=== PATIENT | male | born 1995 | race Caucasian/White ===

== ENCOUNTER 2024-02-29 15:13 | Emergency (ER) | payer OTHER, SELFPAY ==
[2024-02-29] VITALS (12 sets, daily range): BP systolic 145–154; BP diastolic 85–89; PULSE 65–88; RESP 20–22; TEMP 37; O2SAT 95–98; BMI 30.1
--- NOTE | 2024-02-29 16:01 | ED_ITS ---
HPI - General Adult General Chief complaint: Flank Pain Stated complaint: Major lower side/back pain Time Seen by Provider: 02/29/24 16:00 Related Data Allergies Allergy/AdvReac Type Severity Reaction Status Date / Time No Known Drug Allergies Allergy Verified 02/29/24 15:25 Exam Const: Vital Signs, click to edit/add: Vital Signs - 24 hr 02/29/24 15:22 Temperature 98.6 F Pulse Rate [Right Pulse Oximeter] 88 Respiratory Rate 22 Blood Pressure [Ri ght Upper Arm] 154/89 H Pulse Oximetry 98 Oxygen Delivery Me thod Room Air Course Vital Signs Vital signs: Initial Vital Signs Temperature 98.6 F 02/29/24 15:22 Temperature Source Temporal Artery Scan 02/29/24 15:22 Pulse Rate 88 02/29/24 15:22 Pulse Rhythm Regular 02/29/24 15:22 Pulse Strength 3+ Normal 02/29/24 15:22 Respiratory Rate 22 02/29/24 15:22 Blood Pressure 154/89 H 02/29/24 15:22 Blood Pressure Mean 110 H 02/29/24 15:22 Blood Pressure Position Supine 02/29/24 15:22 Pulse Oximetry 98 02/29/24 15:22 Oxygen Delivery Method Room Air 02/29/24 15:22 Vital Signs Temperature 98.6 F 02/29/24 15:22 Pulse Rate 88 02/29/24 15:22 Respiratory Rate 22 02/29/24 15:22 Blood Pressure 154/89 H 02/29/24 15:22 Pulse Oximetry 98 02/29/24 15:22 Oxygen Delivery Method Room Air 02/29/24 15:22 Temperature 98.6 F 02/29/24 15:22 Pulse Rate 88 02/29/24 15:22 Respiratory Rate 22 02/29/24 15:22 Blood Pressure 154/89 H 02/29/24 15:22 Pulse Oximetry 98 02/29/24 15:22 Oxygen Delivery Method Room Air 02/29/24 15:22 Medications Administered Medications: Generic Name Dose Route Start Last Admin Trade Name Freq PRN Reason Stop Dose Admin Hydromorphone HCl 0.5 mg 02/29/24 16:03 02/29/24 18:25 Hydromorphone 0.5 Mg/0.5 Ml Inj IVP 0.5 mg Q1H PRN Administration Pain Discontinued Medications Generic Name Dose Route Start Last Admin Trade Name Freq PRN Reason Stop Dose Admin Ketorolac Tromethamine 15 mg 02/29/24 16:03 02/29/24 16:11 Ketorolac 15 Mg/Ml Inj IVP 02/29/24 16:04 15 mg ONCE ONE Administration Ondansetron HCl 4 mg 02/29/24 16:03 02/29/24 16:10 Ondansetron 2 Mg/Ml Inj IVP 02/29/24 16:04 4 mg ONCE ONE Administration Oxycodone/Acetaminophen 2 tab 02/29/24 17:20 02/29/24 17:35 Oxycodone/Apap 5-325 Tablet PO 02/29/24 17:21 2 tab ONCE ONE Administration Medical Decision Making MDM Narrative Medical decision making narrative: This patient presents with abrupt onset right flank pain. Differential Diagnosis considered includes: Ureterolithiasis, UTI, pyelonephritis, AAA, colitis, diverticulitis, volvulus, appendicitis, cholecystitis, among others. At this point, the evaluation indicates that ureterolithiasis is the cause of the patient's symptoms. There are no signs that this is an infected stone. The patient does have a fairly large stone at his right UVJ. Likely with an 11 no stones will not pass spontaneously. His pain was tolerable improved after Toradol and Dilaudid but then came back. We attempted pain control with oral medications (Percocet) but this was not effective for the patient. Therefore he required additional doses of Dilaudid to get comfort. At this point with a large stone that is unlikely to pass in the outpatient setting and pain not controlled with oral medications, I do think inpatient admission for pain control neurology consultation is indicated. Unfortunately urology not available here in [place]. Discussed this in detail with the patient and his family. They agree that transfer to [facility] hospital is indicated in this instance. Family's 1st preference would be [facility]. Contacted the [facility] transfer line and all their facilities are at capacity. They do not a wait list. The patient would also be agreeable to and [facility] facility. [facility] are also full but they were accepting the patient onto a wait list. We also contacted the [employer] system which is in the patient's insurance in network. There are no beds at the [facility] or [facility]. Patient does not want transfer to [facility]. Therefore the patient will be monitored here in the ER. Will let the patient eat and drink tonight. He will remain here in the [place] ER until a bed opens up the line a system that can be transferred that point. He and his mother understand the bed might not be available till morning since he is currently on a wait list. Discussed with my oncoming partner, Dr. Calles. She will monitor the patient's condition while he waits for bed here in the ER. Lab Data Labs: Lab Results 02/29/24 Range/Units 16:10 WBC 6.67 (4.50-11.00) K/uL RBC 4.91 (4.30-5.90) m/uL Hgb 14.8 (13.5-17.5) gm/dL Hct 43.0 (37.0-53.0) % MCV 88 (80-100) fL MCH 30 (26-34) pg MCHC 34 (32-36) gm/dL RDW Coeff of Margarita 12.4 (11.5-15.5) % Plt Count 280 (140-440) K/uL Neut % (Auto) 55.7 (42.0-72.0) % Lymph % (Auto) 29.2 (20-44) % [place] % (Auto) 10.8 (0.0-11.0) % Eos % (Auto) 3.7 (0.0-7.0) % Baso % (Auto) 0.3 (0.0-3.0) % Neut # (Auto) 3.71 (1.7-7.0) K/uL Lymph # (Auto) 1.95 (0.90-2.90) K/uL [place] # (Auto) 0.70 (0.00-0.90) K/UL Eos # (Auto) 0.25 (0.00-0.50) K/uL Baso # (Auto) 0.02 (0.00-0.30) K/uL Abs Immat Gran (auto) 0.02 (0.00-0.30) K/uL Imm/Tot Granulo (auto) 0.3 % Sodium 140 (135-149) mmol/L Potassium 3.9 (3.6-5.1) mmol/L Chloride 105 (96-114) mmol/L Carbon Dioxide 26 (20-32) mmol/L Anion Gap 9 (7-15) mEq/L BUN 12 (5-24) mg/dL Creatinine 0.8 (0.5-1.5) mg/dL Estimated Creat Clear 140.68 Estimated GFR 123 ml/min Glucose 105 (60-115) mg/dL Calcium 9.3 (8.4-10.6) mg/dL Total Bilirubin 0.4 (0.1-1.5) mg/dL AST 36 H (12-35) U/L ALT 85 H (4-50) U/L Alkaline Phosphatase 58 (40-150) U/L Total Protein 7.9 (6.0-8.3) g/dL Albumin 4.8 (3.3-5.0) g/dL Lipase 58 (23-300) U/L Urine Color Yellow (Yellow) Urine Appearance Clear (Clear) Urine pH 7.0 (5.0-8.5) Ur Specific Kremlin 1.025 (1.000-1.030) Urine Protein Negative (Negative) Urine Glucose (UA) Negative (Negative) Urine Ketones Negative (Negative) Urine Blood 2+ A (Negative) Urine Nitrite Negative (Negative) Urine Bilirubin Negative (Negative) Urine Urobilinogen 2.0 A (0.2-1.0) Ur Leukocyte Esterase Negative (Negative) Urine RBC 2-5 A (0-2) Urine WBC 0-2 (0-5) Ur Squamous Epith Cells Few (None-Few) Urine Bacteria None (None) Imaging Data CT scan - abdomen: Attestation: I have reviewed the pertinent imaging results. Radiologist's impression: IMPRESSION: 1. There is 11 mm calculus at the right ureterovesical junction causing mild right hydronephrosis. 2. There is a 6 mm nonobstructive calculus within the left kidney. 3. The right testicle is within the inferior aspect the right inguinal canal. 4. Moderate diffuse fatty infiltration of the liver. Discharge Plan Discharge Clinical Impression: Kidney stone Patient Disposition: Xfer Other Stand Alone Forms: [facility] Info Instructions
--- NOTE | 2024-02-29 16:04 | CRLHL7_ITS ---
For Patients: As a result of the Century Cures Act, medical imaging exams and procedure reports are released immediately into your electronic medical record. You may view this report before your referring provider. If you have questions, please contact your health care provider. INDICATION: Right flank pain. TECHNIQUE: Axial noncontrast CT cuts were performed from above diaphragm to below the ischial tuberosities. FINDINGS: There is an 11 mm calculus at the right ureteropelvic junction causing mild right hydronephrosis. There is a 6 mm calculus at the lower pole of the left kidney. No other urinary tract calculi are identified. The urinary bladder, seminal vesicles and prostate gland appear normal. The right testicle is within the inferior aspect of the inguinal canal. There is moderate diffuse fatty infiltration of the liver. The spleen, pancreas and adrenal glands appear normal. There are no enlarged retroperitoneal, mesenteric, iliac or inguinal lymph nodes. The colon and small bowel appear normal. The appendix is not inflamed. There is no free intraperitoneal air or fluid. There are no nodules or masses at the visualized lung bases. There are no lytic or sclerotic skeletal lesions. IMPRESSION: 1. There is 11 mm calculus at the right ureterovesical junction causing mild right hydronephrosis. 2. There is a 6 mm nonobstructive calculus within the left kidney. 3. The right testicle is within the inferior aspect the right inguinal canal. 4. Moderate diffuse fatty infiltration of the liver. Please note that all CT scans at this facility use dose modulation, iterative reconstruction, and/or weight-based dosing when appropriate to reduce radiation dose to as low as reasonably achievable. Dictated by Sedrick Ybarra MD @ 02/29/2024 4:34:44 PM (Electronically Signed)
[2024-02-29] MEDS: ONDANSETRON 2 MG/ML inj 4 MG IVP (16:10)
[2024-02-29] MEDS: KETOROLAC 15 MG/ML inj IVP (16:11)
[2024-02-29 16:16] LABS: Appearance Urine Clear (Clear); Bilirubin Urine Negative (Negative); Blood Urine 2+ (Negative); Color Urine Yellow (Yellow); Glucose Urine Negative (Negative); Ketones Urine Negative (Negative); Leukocyte Esterase Urine Negative (Negative); Nitrite Urine Negative (Negative); Protein Urine Negative (Negative); Specific Gravity Urine 1.025 (1.000-1.030)
[2024-02-29 16:24] LABS: Basophils Absolute Auto 0.02 K/uL (0.00-0.30); Basophils Percent Auto 0.3 % (0.0-3.0); Eosinophils Absolute Auto 0.25 K/uL (0.00-0.50); Eosinophils Percent Auto 3.7 % (0.0-7.0); Hemoglobin* 14.8 gm/dL (13.5-17.5); Immature Granulocytes Abs Auto 0.02 K/uL (0.00-0.30); Immature Granulocytes Pct Auto 0.3 %; Lymphocytes Absolute Auto 1.95 K/uL (0.90-2.90); Lymphocytes Percent Auto 29.2 % (20-44); Mean Corpuscular HGB Conc 34 gm/dL (32-36); Mean Corpuscular Hemoglobin 30 pg (26-34); Mean Corpuscular Volume 88 fL (80-100); Monocytes Percent Auto 10.8 % (0.0-11.0); Neutrophils Absolute Auto 3.71 K/uL (1.7-7.0); Neutrophils Percent Auto 55.7 % (42.0-72.0); Platelet Count* 280 K/uL (140-440); RDW Coefficient of Variation % 12.4 % (11.5-15.5); Red Blood Count 4.91 m/uL (4.30-5.90); White Blood Count* 6.67 K/uL (4.50-11.00)
[2024-02-29 16:36] LABS: Slide Review Reflex No
[2024-02-29 16:38] LABS: Albumin* 4.8 g/dL (3.3-5.0)
[2024-02-29 16:39] LABS: Chloride* 105 mmol/L (96-114); Potassium* 3.9 mmol/L (3.6-5.1); Sodium* 140 mmol/L (135-149)
[2024-02-29 16:41] LABS: Anion Gap 9 mEq/L (7-15); Aspartate Amino Transferase* 36 U/L (12-35); Bilirubin Total* 0.4 mg/dL (0.1-1.5); Carbon Dioxide* 26 mmol/L (20-32); Creatinine* 0.8 mg/dL (0.5-1.5); Est. Creatinine Clearance* 140.68; Estimated Glomerular Filt Rate 123 ml/min
[2024-02-29 16:42] LABS: Alanine Aminotransferase* 85 U/L (4-50); Alkaline Phosphatase* 58 U/L (40-150); Blood Urea Nitrogen* 12 mg/dL (5-24); Calcium* 9.3 mg/dL (8.4-10.6); Glucose* 105 mg/dL (60-115); Lipase* 58 U/L (23-300); Total Protein* 7.9 g/dL (6.0-8.3)
[2024-02-29 16:44] LABS: Squamous Epithelial Cell Urine Few (None-Few); WBC Urine 0-2 (0-5)
--- OUTSIDE RECORDS SUMMARY | 2024-02-29 16:45 | XMS_ITS | Encounter Summary ---
Author Organization [facility] Address [address] [place] [id number] Care Team Providers Care Sock Turner Name Role Phone Jono Barajas MD Unavailable [phone] System, Provider Not In Primary Care Provider Un available Reason for Visit * Reason Comments Medication Refill Encounter Details Date Type Department Care Team (Late st Contact Info) Description 07/03/[address] [phone] Ciera Shah DNP [address] [place] [id number] Medication Refill Social History Tobacco Use Types Packs/Day Years Used Date Smoking Tobacco: Never Smokeless Tobacco: Current Chew Alcohol Use Standard Drinks/Week Comments Yes 0 (1 standard drink = 0.6 oz pur e alcohol) PHQ-2 Answer Date Recorded PHQ-2 Score 6 09/04/2021 Sex and Gender Information Value Date Recorded Sex Assigned at Not on file 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 Gender Identity Not on file Sexual Orientation Not on file documented as of this encounter Miscellaneous Notes * Telephone Encounter - Evelio Miner RN - 07/03/2022 4:40 PM CDT Requested Prescriptions Pending Prescriptions Disp Refills lisinopril (ZESTRIL) 10 MG tablet [Pharmacy Med Name: LISINOPRIL 10MG TABS] 90 tablet 0 Sig: TAKE ONE TABLET BY MOUTH ONCE DAILY LILLIANA Inhibitors (Including Combos) Protocol Failed - 07/03/2022 4:36 PM Failed - Blood pressure under 140/90 in past 12 months BP Readings from Last 3 Encounters: 03/09/22 (!) 142/78 09/04/21 136/88 01/09/21 130/78 Failed - Recent (12 mo) or future (30 days) visit within the authorizing provider's specialty Patient has had an office visit with the authorizing provider or a provider within the authorizing providers department within the previous 12 mos or has a future within next 30 days. See Patient Info tab in inbasket, or Choose Columns in Meds & Orders section of the refill encounter. Failed - Normal serum creatinine on file in past 12 months Recent Labs Lab Test 05/10/15 0724 CR 0.81 Ok to refill medication if creatinine is low Failed - Normal serum potassium on file in past 12 months Recent Labs Lab Test 05/10/15 0724 POTASSIUM 4.0 Passed - Medication is active on med list Passed - Patient is age 18 or older documented in this encounter Plan of Treatment Not on file documented as of this encounter Visit Diagnoses Diagnosis Hypertension goal BP (blood pressure) < 140/90 Unspecified essential hypertension documented in this encounter Additional Health Concerns Assessment Noted Time PHQ-9 Depression Total Score: 13 022 2:29 PM CDT documented as of this encounter Care Teams Sock Turner Relationship Specialty Start Date End Date System, Provider Not In PCP - General Clinic 03/09/22 Jono Barajas MD [address] [place] [address] Assigned PCP 02/09/22 12/16/23 documented as of this encounter
--- OUTSIDE RECORDS SUMMARY | 2024-02-29 16:45 | XMS_ITS | Encounter Summary ---
Author Organization [facility] Address [address] [place] [address] Care Team Providers Care Weatherization And Housing Inspector Name Role Phone Domenic Rubin MD Primary Care Provider + [phone] Jono Barajas MD Unavailable [phone] Irene Johnson APRN SIGN MAKER Unavailable + Ciera Shah DNP Unavailable [phone] Jono Barajas MD Unavailable [phone] System, Provider Not In Primary Care Provider Un available Encounter Details Date Type Department Care Team (Late st Contact Info) Description 09/04/2021 MyC Medical Advice [facility] [address] [place] [phone] [facility] SIGN MAKER [address] [place] [address] Social History Tobacco Use Types Packs/Day Years Used Date Smoking Tobacco: Never Smokeless Tobacco: Current Chew Alcohol Use Standard Drinks/Week Comments Yes 0 (1 standard drink = 0.6 oz pur e alcohol) PHQ-2 Answer Date Recorded PHQ-2 Score 6 09/04/2021 Sex and Gender Information Value Date Recorded Sex Assigned at Not on file 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 No / Unsure 09/04/2021 2:25 PM CDT documented as of this encounter Plan of Treatment Not on file documented as of this encounter Visit Diagnoses Not on filedocumented in this encounter Additional Health Concerns Assessment Noted Time PHQ-9 Depression Total Score: 13 022 2:29 PM CDT documented as of this encounter Care Teams Weatherization And Housing Inspector Relationship Specialty Start Date End Date Domenic Rubin MD PCP - General Family Practice 03/21/15 12/23/21 System, Provider Not In PCP - General Clinic 03/09/22 Jono Barajas MD [address] [facility] [place] [place] [id number] Assigned PCP 12/03/20 09/07/21 Irene Johnson APRN SIGN MAKER [address] [place] [address] Assigned PCP 09/08/21 11/23/21 Ciera Shah DNP [address] [place] [address] Assigned PCP 11/24/21 02/08/22 Jono Barajas MD [address] [place] [id number] Assigned PCP 02/09/22 12/16/23 documented as of this encounter
--- OUTSIDE RECORDS SUMMARY | 2024-02-29 16:45 | XMS_ITS | Clinical Summary ---
Author Organization [place] Address [facility] [place] [address] Care Team Providers Care Wire Products Inspector Name Role Phone System, Provider Not In Primary Care Provider Un available Allergies No known active allergies Medications escitalopram (LEXAPRO) 20 MG tabletIndication s:Depression, unspecified depression type Take 1 tablet (20 mg) by mouth daily 90 tablet 3 07/06/2022 Active lisinopril (ZESTRIL) 10 MG tabletIndication s:Hypertension goal BP (blood pressure) < 140/90 TAKE ONE TABLET BY MOUTH ONCE DAILY 90 tablet 11/13/2022 Active Active Problems Problem Noted Date Diagnosed Date Current moderate episode of major depressive dis order 09/04/2021 Assessment & Plan (09/04/2021 4:47 PM CDT): PHQ9: 13 GAD7: 10 Main symptoms of depression right now include dysthymia, feeling down depressed and hopeless, little pleasure in doing things, doing bad about himself, unable to get motivated to do anything other than work and sleep, has increased sleeping is getting too much sleep he states, also decreased motivation for self-care including eating proper meals. He states he is also drinking a lot of beer not as much throughout the week but over a case of beer on the weekends. He has had times of his life where he has abstained from alcohol but he restarted up to help with coping. 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 He states that he is struggled with depression and anxiety for most of his life. He stated that Lexapro was working pretty well for him at 10 mg but now the last 2- 3 weeks it just is not working for him. This feels like his depression to him. He denies suicidal intention, plan or supplies. He does have thoughts of regularly. He has been given the card for employee assistance to start with counseling. He could also find another psychotherapist through his insurance or outside. Discussed improving nutrition however I think he might need to work on his mental health before he can have the motivation to work on eating better. We discussed various options including meal planning over the weekend to make it easier to have healthier meals throughout the week, not eating after dinner until he breaks his fast the next day, and/or breaking his fast with a protein/fat type of food instead of a refined carbohydrate. However I feel at this time he may not have the motivation to try and change his eating patterns until he starts to feel less depressed. I gave him some resources for running how to eat a more healthy whole food approach however I would expect that to be something he could do later on. We also briefly discussed if he wants more help with weight management when he feels better I can help him with that. Other interventions include using meditation to help with anxiety and depression. There are several apps that I mentioned that he could try to use. Medication: Increase Lexapro to 20 mg daily, if that does not improve in 2 weeks then he can increase up to 30 mg. I can send a prescription as needed if he needs more medication for the 30 mg dose. Recommend he pursue psychotherapy when he is ready. Next steps: If he has no improvement with Lexapro then I would consider switching to a different SSRI like Zoloft or Celexa or an SNRI like Cymbalta or Effexor. I also would recommend in the near future that he consider cutting down his alcohol intake or discontinuing it entirely. Consider better nutrition eating patterns, consider exercise. Follow-up in 1 month. Generalized anxiety disorder 09/04/2021 Assessment & Plan (09/04/2021 4:43 PM CDT): GAD7 score: 10 Patient states that he does have some issues with anxiety especially in social situations and in big groups of people. It affected him once the summer when he was at a [employer] game that he really wanted to go to with a really good friend and he had to leave early because he was feeling panicky. Consider doing meditation 10% happier frederick has meditation specifically for anxiety and depression. Increase in Lexapro to 20 mg. See below for further interventions Class 1 obesity 09/04/2021 Assessment & Plan (09/04/2021 4:47 PM CDT): Wt Readings from Last 4 Encounters: 09/04/21 103.4 kg (228 lb) 01/09/21 98.4 kg (217 lb) 12/26/20 95.3 kg (210 lb) 10/25/19 89.8 kg (198 lb) Comorbid conditions include hypertension. Phenotype or cause of obesity is unclear yet, more lab testing would be required to further assess metabolic health. High refined carbohydrate diet he has a very poor nutritious diet of standard Macanese food. He also drinks a lot of beer with over a case a week. So this also could be contributing to the weight gain. He also is taking Lexapro which is a known weight gaining medication. Nutrition: Counseled on real whole foods type of eating patterns, also discussed timing of meals and frequency. Discussed meal planning as a way of intentionally choosing what to eat for the week. I think until his mental health improves though I would not anticipate any changes in habits. Follow-up when he is ready for trying to lose weight. Hypertension goal BP (blood pressure) < 140/90 0 03/21/2015 History of peanut allergy 05/16/2010 Resolved Problems Problem Noted Date Diagnosed Date Resolved Date Closed dislocation of shoulder 09/10/2010 12/14/2010 Overview (11/25/2014): Problem list name updated by automated process. Provider to review Immunizations Name Administration Dates Next Due DTAP (<7y) 06/05/1999, 6,1994,05/01 DTP-Hib 05/27/1995,1994,1994 Flu, Unspecified 02/20/2009, 8,12/09/2005,01/30,01/19/2003 HIB (PRP-T) 05/27/1995,1994,1994 HepB 01/08/1995,1994,1994 HepB, Unspecified 1994 Hepatitis B, Adult 01/08/1995,1994 Influenza (H1N1) 02/20/2009 Influenza (IIV3) PF 02/20/2009, 8,12/09/2005,01/30,01/19/2003 Influenza Vaccine >6 months,quad, PF 11/29/2021, 11/25/2018 MMR 06/05/1999,05/27/1995 Meningococcal (Menomune ) 07/04/2006 Nasal Influenza Vaccine 2-49 (FluMist) 0 OPV, trivalent, live 1994,1994 Poliovirus, inactivated (IPV) 06/05/1999, 995,1994 TDAP (Adacel,Boostrix) 03/09/2022 TDAP Vaccine (Adacel) 07/04/2006 Family History Medical History Relation Comments Coronary Artery Disease Maternal Grandfather Hypertension Maternal Grandfather Hypertension Maternal Grandmother Relation Status Comments Father Alive Maternal Grandfather Maternal Grandmother Mother Alive Social History Tobacco Use Types Packs/Day Years Used Date Smoking Tobacco: Never Smokeless Tobacco: Current Chew Tobacco Cessation:Ready to Q uit: No; Counseling Given: Yes Alcohol Use Standard Drinks/Week Comments Yes 0 (1 standard drink = 0.6 oz pur e alcohol) PHQ-2 Answer Date Recorded PHQ-2 Score 6 09/04/2021 Adolescent Education Answer Date Record ed Getting School Help Needed Not on file 12/09 Sex and Gender Information Value Date Recorded Sex Assigned at Not on file 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 Gender Identity Not on file Sexual Orientation Not on file Last Filed Vital Signs Vital Sign Reading Time Taken Comments Blood Pressure 142/78 03/09/2022 12:32 AM SEXER Pulse 74 03/09/2022 12:32 AM SEXER Temperature 36.6 C (97.8 F) 03/08/2022 11:50 PM SEXER Respiratory Rate 18 03/08/2022 11:50 PM SEXER Oxygen Saturation 97% 03/09/2022 12:32 AM SEXER Inhaled Oxygen Concentration - - Weight 99.8 kg (220 lb) 03/08/2022 11:50 PM SEXER Height 180.3 cm (5' 11) 03/08/2022 11:50 PM SEXER Body Mass Index 30.68 03/08/2022 11:50 PM SEXER Plan of Treatment Health Maintenance Due Date Last Done Comments ADVANCE CARE PLANNING 1994 ANNUAL REVIEW OF HM ORDERS 1994 DEPRESSION ACTION PLAN 1994 HIV SCREENING 2009 HEPATITIS C SCREENING 2012 YEARLY PREVENTIVE VISIT 05/05/2013 05/05/2012 BMP 05/09/2016 05/10/2015, 03/07/2015 PHQ-9 03/07/2022 09/04/2021, 12/25, 12/26/2020, Additional history exists COVID-19 Vaccine ( season) 2023 03/19/2021, 02/26/2021 INFLUENZA VACCINE (#1) 2023 , 11/20/2019, 11/25/2018, Additional history exists DTAP/TDAP/TD IMMUNIZATION (7 - Td or Tdap) 03/09/2032 03/09/2022, 07/04/2006, 06/05/1999, Additional history exists RSV VACCINE (1 - 1-dose 75+ series) 2069 HEPATITIS B IMMUNIZATION Completed 995, 01/08/1995, 1994, Additional history exists MENINGITIS IMMUNIZATION Aged Out 07/04/2006 No l onger eligible based on patient's age to complete this topic HPV IMMUNIZATION Aged Out No longer e ligible based on patient's age to complete this topic Pneumococcal Vaccine: Pediatrics (0 to 5 Years) and At-Risk Patients (6 to 49 Years) Aged Out No longer eligible based on patient's age to complete this topic RSV MONOCLONAL ANTIBODY Aged Out No l onger eligible based on patient's age to complete this topic Procedures Procedure Name Priority Date/Time Associated Diagnosis Comments BASIC METABOLIC PANEL Routine 05/10/2015 7:24 AM CDT Hypertension goal BP (blood pressure) < 140/90 Palpitations from Last 3 Months or Most Recently Relevant to Health Maintenance Results * Basic metabolic panel (05/10/2015 7:24 AM CDT) Sodium 137 133 - 144 mmol/L [facility] Potassium 4.0 3.4 - 5.3 mmol/L [facility] Chloride 103 94 - 109 mmol/L [facility] Carbon Dioxide 27 20 - 32 mmol/L [facility] Anion Gap 7 3 - 14 mmol/L [facility] Glucose 82 70 - 99 mg/dL [facility] Urea Nitrogen 12 7 - 30 mg/dL [facility] Creatinine 0.81 0.66 - 1.25 mg/dL [facility] GFR Estimate >90 Non GFR Calc >60 mL/min/1. 7m2 [facility] GFR Estimate If Black >90 GFR Calc >60 mL/min/1. 7m2 [facility] Calcium 8.8 8.5 - 10.1 mg/dL [facility] Blood specimen (specimen) 05/10/2015 7:24 AM CDT 05/10/2015 7:29 AM CDT us Domenic Rubin MD LAB - BLOOD ORDERABLES Final Result [facility] [address] [place] [address] from Last 3 Months or Most Recently Relevant to Health Maintenance Insurance [employer] Care Teams Wire Products Inspector Relationship Specialty Start Date End Date System, Provider Not In PCP - General Clinic 03/09/22
--- OUTSIDE RECORDS SUMMARY | 2024-02-29 16:45 | XMS_ITS | Encounter Summary ---
Author Organization [place] Address [address] [place] [address] Care Team Providers Care Die Designer Name Role Phone Jono Barajas MD Unavailable [phone] System, Provider Not In Primary Care Provider Un available Encounter Details Date Type Department Care Team (Late st Contact Info) Description 07/06/2022 [facility] [place] [facility] [address] [place] [address] [facility]N [facility] [address] [place], [place] [id number] Social History Tobacco Use Types Packs/Day Years Used Date Smoking Tobacco: Never Smokeless Tobacco: Current Chew Alcohol Use Standard Drinks/Week Comments Yes 0 (1 standard drink = 0.6 oz pur e alcohol) PHQ-2 Answer Date Recorded PHQ-2 Score 6 09/04/2021 Sex and Gender Information Value Date Recorded Sex Assigned at Not on file 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
--- OUTSIDE RECORDS SUMMARY | 2024-02-29 16:45 | XMS_ITS | Encounter Summary ---
Author Organization [facility] Address [address] [place] [address]. [place] [address] Care Team Providers Care Store Warehouse Associate Name Role Phone Jono Barajas MD Unavailable [phone] System, Provider Not In Primary Care Provider Un available Reason for Visit * Reason Comments Medication Refill Encounter Details Date Type Department Care Team (Late st Contact Info) Description 07/03/[address] [address] Ciera Shah DNP [address] [place] [address] Medication Refill Social History Tobacco Use Types Packs/Day Years Used Date Smoking Tobacco: Never Smokeless Tobacco: Current Chew Alcohol Use Standard Drinks/Week Comments Yes 0 (1 standard drink = 0.6 oz pur e alcohol) PHQ-2 Answer Date Recorded PHQ-2 Score 6 09/04/2021 Sex and Gender Information Value Date Recorded Sex Assigned at Not on file 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 Sophia [place], [facility] * Telephone Encounter - Ciera Shah DNP - 07/04/2022 10:19 AM CDT This is a [facility] patient. [facility] is no longer covering [facility]. Please have patient reach out to the onsite [facility] that is now run by [facility]. He can call their number or walk up to the clinic to schedule an appointment to have his medications refilled. Thanks, Ciera Shah DNP, MOTHER'S HELPER-C * Telephone Encounter - Jono Barajas MD - 07/03/2022 3:12 PM CDT I am not the PCP Please advise to PCP * Telephone Encounter - Evelio Miner RN - 07/03/2022 1:48 PM CDT Requested Prescriptions Pending Prescriptions Disp Refills lisinopril (ZESTRIL) 10 MG tablet [Pharmacy Med Name: LISINOPRIL 10MG TABS] 90 tablet 0 Sig: TAKE ONE TABLET BY MOUTH ONCE DAILY LILLIANA Inhibitors (Including Combos) Protocol Failed - 07/03/2022 1:34 PM Failed - Blood pressure under 140/90 [...] - Patient is age 18 or older It appears he is usually seen at a [facility] clinic, but you are listed documented in this encounter Plan of Treatment Not on file documented as of this encounter Visit Diagnoses Diagnosis Hypertension goal BP (blood pressure) < 140/90 Unspecified essential hypertension documented in this encounter Additional Health Concerns Assessment Noted Time PHQ-9 Depression Total Score: 13 022 2:29 PM CDT documented as of this encounter Care Teams Store Warehouse Associate Relationship Specialty Start Date End Date System, Provider Not In PCP - General Clinic 03/09/22 Jono Barajas MD [address] [place] [address] Assigned PCP 02/09/22 12/16/23 documented as of this encounter
--- OUTSIDE RECORDS SUMMARY | 2024-02-29 16:45 | XMS_ITS | Referral Summary ---
Author Organization [place] Address [facility] [place] [address] Care Team Providers Care Core Setter Name Role Phone System, Provider Not In [...] with coping. 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 Gender Identity Not on file Sexual Orientation Not on file Last Filed Vital Signs Vital Sign Reading Time Taken Comments Blood Pressure 142/78 03/09/2022 12:32 AM AVIATION MAINTENANCE INSTRUCTOR Pulse 74 03/09/2022 12:32 AM AVIATION MAINTENANCE INSTRUCTOR Temperature 36.6 C (97.8 F) 03/08/2022 11:50 PM AVIATION MAINTENANCE INSTRUCTOR Respiratory Rate 18 03/08/2022 11:50 PM AVIATION MAINTENANCE INSTRUCTOR Oxygen Saturation 97% 03/09/2022 12:32 AM AVIATION MAINTENANCE INSTRUCTOR Inhaled Oxygen Concentration - - Weight 99.8 kg (220 lb) 03/08/2022 11:50 PM AVIATION MAINTENANCE INSTRUCTOR Height 180.3 cm (5' 11) 03/08/2022 11:50 PM AVIATION MAINTENANCE INSTRUCTOR Body Mass Index 30.68 03/08/2022 11:50 PM AVIATION MAINTENANCE INSTRUCTOR Plan of Treatment Not on file Procedures Procedure Name Priority Date/Time Associated Diagnosis Comments BASIC METABOLIC PANEL Routine 05/10/2015 7:24 AM CDT Hypertension goal BP (blood pressure) < 140/90 Palpitations from Last 3 Months or Most Recently Relevant to Health Maintenance Results * Basic metabolic panel (05/10/2015 7:24 AM CDT) Sodium 137 133 - 144 mmol/L [facility] Potassium 4.0 3.4 - 5.3 mmol/L [facility] Chloride 103 94 - 109 mmol/L [facility] Carbon Dioxide 27 20 - 32 mmol/L [facility] Anion Gap 7 3 - 14 mmol/L [facility] Glucose 82 70 - 99 mg/dL [facility] Urea Nitrogen 12 7 - 30 mg/dL [facility] Creatinine 0.81 0.66 - 1.25 mg/dL [facility] GFR Estimate >90 Non GFR Calc >60 mL/min/1. 7m2 [facility] GFR Estimate If Black >90 GFR Calc >60 mL/min/1. 7m2 [facility] Calcium 8.8 8.5 - 10.1 mg/dL [facility] Blood specimen (specimen) 05/10/2015 7:24 AM CDT 05/10/2015 7:29 AM CDT us Domenic Rubin MD LAB - BLOOD ORDERABLES Final Result [facility] [address] [place] [address] from Last 3 Months or Most Recently Relevant to Health Maintenance Insurance [employer] Care Teams Core Setter Relationship Specialty Start Date End Date System, Provider Not In PCP - General Clinic 03/09/22
--- OUTSIDE RECORDS SUMMARY | 2024-02-29 16:45 | XMS_ITS | Encounter Summary ---
Author Organization [place] Address [address] [place] [address] Care Team Providers Care Stock Control Supervisor Name Role Phone Domenic Rubin MD Primary Care Provider Domenic Rubin MD Unavailable [phone] Domenic Rubin MD Unavailable [phone] Belkis Pierre MFT[facility] Unavailable Leesa Funes ULTIMATE HOOPS TRAINER MFTS Unavailable [phone] Jono Barajas MD Unavailable [phone] [facility] Irene Janina ULTIMATE HOOPS TRAINER [employer] Unavailable + Ciera Shah DNP Unavailable Jono Barajas MD Unavailable System, Provider Not In Primary Care Provider Un available Encounter Details Date Type Department Care Team (Late st Contact Info) Description 04/25/2015 [facility] Medical Advice [facility] [address] [place] [address] Fadumo Jones RN Social History Tobacco Use Types Packs/Day Years Used Date Smoking Tobacco: Never Smokeless Tobacco: Current Chew Alcohol Use Standard Drinks/Week Comments Yes 0 (1 standard drink = 0.6 oz pur e alcohol) Sex and Gender Information Value Date Recorded Sex Assigned at Not on file 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 Gender Identity Not on file Sexual Orientation Not on file documented as of this encounter Plan of Treatment Not on file documented as of this encounter Visit Diagnoses Not on filedocumented in this encounter Additional Health Concerns Infection Onset Date Last Indicated Resolved Time Rule Out COVID-19 11/23/2020 11/23/2020 11/24/2020 1:24 PM CDT documented as of this encounter Care Teams Stock Control Supervisor Relationship Specialty Start Date End Date Domenic Rubin MD PCP - General Family Practice 03/21/15 12/23/21 [place] [address] [place] [address] PCP - Assigned PCP 06/16/16 04/28/18 System, Provider Not In PCP - General Clinic 03/09/22 [place] [address] [place] [address] Assigned PCP 06/16/16 01/22/20 Belkis Pierre, MFTS [address] [place] [address] Assigned PCP 01/23/20 05/27/20 Leesa Funes APRN [facility] [address] [place] [address] Assigned PCP 05/28/20 12/02/20 Jono Barajas MD [address] [facility] [place] [address] Assigned PCP 12/03/20 09/07/21 Irene Johnson APRN [facility] [address] [facility] [place] [address] Assigned PCP 09/08/21 11/23/21 Ciera Shah DNP [address] [facility] [place] [address] Assigned PCP 11/24/21 02/08/22 Jono Barajas MD [address] [facility] [place] [address] Assigned PCP 02/09/22 12/16/23 documented as of this encounter
[2024-02-29] MEDS: OxyCODONE/APAP 5-325 TABLET 2 TAB PO (17:35)
[2024-02-29] MEDS: HYDROmorphone 0.5 mg/0.5 ml inj IVP ×3 (18:25→23:49)
[2024-02-29] MEDS: LACTATED RINGERS 1000 ML 1,000 ML 125 ML IV (22:02)
[2024-03-01 01:51] VITALS: BP 141/79; PULSE 85; RESP 20; TEMP 37; O2SAT 97
[2024-03-01] MEDS: HYDROmorphone 0.5 mg/0.5 ml inj IVP ×4 (01:59→12:23)
[2024-03-01 03:14] VITALS: BP 138/74; PULSE 85; RESP 18; TEMP 36.7; O2SAT 99
[2024-03-01 06:00] VITALS: BP 145/82; PULSE 87; RESP 18; TEMP 36.7; O2SAT 99
[2024-03-01] MEDS: LACTATED RINGERS 1000 ML 1,000 ML 125 ML IV (07:27)
[2024-03-01] MEDS: KETOROLAC 15 MG/ML inj IVP (07:49)
[2024-03-01 12:54] VITALS: BP 116/70; PULSE 76; RESP 20; O2SAT 98
== END 2024-03-01 12:52 | disposition other institution (70) ==
PROVIDERS: Emergency Provider Emergency Medicine
DX: N20.0 Calculus of kidney (principal)
CPT/HCPCS: 36415; 74176; 80053; 81001; 81003; 83690; 85025; 94761; 96361; 96374; 96375; 99283; 99285; A9270; J1171; J1885; J2405; J7120